=== PATIENT | female | born 1980 | race American Indian/Alaskan Native ===

== ENCOUNTER 2017-07-31 00:44 | Emergency (ER) | payer SELFPAY ==
[2017-07-31 01:07] VITALS: O2SAT 100
[2017-07-31 04:54] VITALS: BP 114/83; PULSE 82; RESP 18; TEMP 97.8
--- NOTE | 2017-07-31 05:10 | C.PDOC ---
History Of Present Illness 36 y/o female with PMHx of bipolar disorder presents to ED for evaluation on occasional depression. Patient admits to drinking ETOH today and reports she is compliant with medication. Patient denies suicidal ideation, homicidal ideation , hallucinations or any other complaints at this time. Chief Complaint (Nursing): Substance Abuse History Per: Patient History/Exam Limitations: no limitations Onset/Duration Of Symptoms: Days Current Symptoms Are (Timing): Still Present Suicide/Self Injury Attempted (Context): None Modifying Factor(s): None Past Medical History Reviewed: Historical Data, Nursing Documentation, Vital Signs Vital Signs: Last Vital Signs Temp 97.8 F 07/31/17 04:53 Pulse 82 07/31/17 04:53 Resp 18 07/31/17 04:53 BP 114/83 07/31/17 04:53 Pulse Ox 100 07/31/17 05:11 - Medical History PMH: Anxiety, Bipolar Disorder Surgical History: No Surg Hx Family History: States: No Known Family Hx - Social History Hx Alcohol Use: Yes Hx Substance Use: No Review Of Systems Constitutional: Negative for: Fever, Chills Cardiovascular: Negative for: Chest Pain Respiratory: Negative for: Shortness of Breath Gastrointestinal: Negative for: Nausea, Vomiting Musculoskeletal: Negative for: Arm Pain Physical Exam - Physical Exam Appears: Non-toxic, No Acute Distress Skin: Normal Color, Warm, Dry, No Rash Head: Atraumatic, Normacephalic Oral Mucosa: Moist Neck: Normal ROM, Supple Chest: Symmetrical Cardiovascular: Rhythm Regular Respiratory: Normal Breath Sounds, No Rales, No Rhonchi, No Wheezing Gastrointestinal/Abdominal: Soft, No Tenderness, No Guarding, No Rebound Neurological/Psych: Oriented x3, Normal Speech, Normal Motor, Normal Sensation ED Course And Treatment O2 Sat by Pulse Oximetry: 100 (RA) Pulse Ox Interpretation: Normal Disposition - Disposition Referrals: [facility] Rosa M Cervantes, [Non-Staff] - Disposition: HOME/ ROUTINE Disposition Time: 01:45 Condition: GOOD Additional Instructions: Thank you for letting us take care of you today. The emergency medical care you received today was directed at your acute symptoms. If you were prescribed any medication, please fill it and take as directed. It may take several days for your symptoms to resolve. Return to the Emergency Department if your symptoms worsen, do not improve, or if you have any other problems. Please contact your doctor or call one of the physicians/clinics you have been referred to that are listed on the Patient Visit Information form that is included in your discharge packet. Bring any paperwork you were given at discharge with you along with any medications you are taking to your follow up visit. Our treatment cannot replace ongoing medical care by a primary care provider (PCP) outside of the emergency department. Thank you for allowing the [facility] team to be part of your care today. Follow up with your doctor in 2-3 days for re-evaluation. Instructions: At-Risk Alcohol Use (ED) Forms: [employer] (Kazakh) - Clinical Impression Clinical Impression: Alcohol abuse - Scribe Statement The provider has reviewed the documentation as recorded by the Ozzyiblinden White All medical record entries made by the Ozzyiblinden were at my direction and personally dictated by me. I have reviewed the chart and agree that the record accurately reflects my personal performance of the history, physical exam, medical decision making, and the department course for this patient. I have also personally directed, reviewed, and agree with the discharge instructions and disposition.
== END 2017-07-31 04:54 | disposition home or self-care (01) ==
LOC: C.ER 00:44
DX: F10.10 Alcohol abuse, uncomplicated (principal); Y90.9 Presence of alcohol in blood, level not specified

== ENCOUNTER 2017-08-01 08:51 | Emergency (ER) | payer SELFPAY ==
[2017-08-01 08:56] VITALS: BMI 34.0
[2017-08-01] MEDS ORDERED: Oxycodone/Acetaminophen 5/325 mg Tab PO STA (09:45)
[2017-08-01] MEDS ORDERED: Oxycodone/Acetaminophen 5/325 mg Tab ONE (09:56)
--- NOTE | 2017-08-01 10:37 | C.PDOC ---
History Of Present Illness Pt is a 36 yr old female with PMHx of bipolar disorder, presents to the ER for evaluation of right lower toothache for the past 2 days. Patient states she has tried Advil PM with mild relief. Patient states the pain is 10/10. Patient denies fever, chills, mouth swelling or headache. Pt w/ no other complaints at this time. PMD: None . Time Seen by Provider: 08/01/17 09:22 Chief Complaint (Nursing): Dental Pain History Per: Patient History/Exam Limitations: no limitations Onset/Duration Of Symptoms: Days (2) Past Medical History Reviewed: Historical Data, Nursing Documentation, Vital Signs Vital Signs: Last Vital Signs Temp 98.2 F 08/01/17 10:45 Pulse 68 08/01/17 10:45 Resp 16 08/01/17 10:45 BP 145/70 08/01/17 10:45 Pulse Ox 96 08/01/17 19:09 - Medical History PMH: Anxiety, Bipolar Disorder Family History: States: Diabetes - Social History Hx Tobacco Use: Yes Hx Alcohol Use: No Hx Substance Use: No - Immunization History Hx Tetanus Toxoid Vaccination: Yes Hx Influenza Vaccination: Yes Hx Pneumococcal Vaccination: Yes Review Of Systems Except As Marked, All Systems Reviewed And Found Negative. Constitutional: Negative for: Fever, Chills ENT: Positive for: Other ((+) Pain in the right lower molar area). Negative for : Mouth Swelling Neurological: Negative for: Headache Physical Exam - Physical Exam Appears: Non-toxic, No Acute Distress Skin: Warm, Dry, No Rash Head: Atraumatic, Normacephalic Eye(s): bilateral: Normal Inspection, EOMI Nose: Normal Tongue: Normal Appearing Lips: Normal Appearing Teeth: Other (Right Lower Molar - No abscess. Non tender.) Throat: Normal, No Erythema, No Exudate Chest: Symmetrical, No Tenderness Cardiovascular: Rhythm Regular, No Murmur Respiratory: Normal Breath Sounds, No Rales, No Rhonchi, No Stridor, No Wheezing Neurological/Psych: Oriented x3, Normal Speech, Normal Motor ED Course And Treatment O2 Sat by Pulse Oximetry: 96 (RA) Pulse Ox Interpretation: Normal Medical Decision Making Medical Decision Making: Initial impression: Toothache Initial Plan: Viscous Lidocaine PO (if no relief, will give Percocet) Progress note: Pt feels better. Will d/c home. NOTE: I did query the [place] [employer]. No hx of opioid Rx filled. Pt educated on risks/benefits of opioids. Disposition Counseled Patient/Family Regarding: Diagnosis, Need For Followup - Disposition Disposition: HOME/ ROUTINE Disposition Time: 10:35 Condition: IMPROVED Additional Instructions: Ms. Medrano, thank you for letting us take care of you today. Return to the ER if your symptoms worsen, or if any problems. Take the medication listed below as prescribed. You were given a list of dental clinics. Please follow up with the dentist next week. Prescriptions: Ibuprofen [Motrin Tab] 1 tab PO TID PRN #30 tab PRN Reason: Pain, Moderate (4-7) oxyCODONE/Acetaminophen [Percocet 5/325 mg Tab] 1 tab PO QID PRN #10 tab PRN Reason: Pain, Severe (8-10) Instructions: Toothache (ED) Forms: General Discharge Instructions Print Language: KITTITIAN - POA Present On Arrival: None - Clinical Impression Clinical Impression: Toothache - Scribe Statement The provider has reviewed the documentation as recorded by the Ceferino Haynes Provider Attestation: All medical record entries made by the Ceferino were at my direction and personally dictated by me. I have reviewed the chart and agree that the record accurately reflects my personal performance of the history, physical exam, medical decision making, and the department course for this patient. I have also personally directed, reviewed, and agree with the discharge instructions and disposition.
[2017-08-01 10:47] VITALS: BP 145/70; PULSE 68; RESP 16; TEMP 98.2
[2017-08-01 19:08] VITALS: O2SAT 96
== END 2017-08-01 10:45 | disposition home or self-care (01) ==
LOC: C.ER 08:51
DX: K08.89 Other specified disorders of teeth and supporting structures (principal)